=== PATIENT | female | born 1985 | race Caucasian/White ===

== ENCOUNTER 2018-04-08 06:19 | Emergency (ER) | payer SELFPAY ==
[2018-04-08] MEDS: CEPHALEXIN 250 MG CAPSULE. PO (06:42)
[2018-04-08] MEDS: diazePAM 5 MG TABLET PO (06:42)
== END 2018-04-08 09:00 | disposition home or self-care (01) ==
LOC: ER 06:19
DX: I80.02 Phlebitis and thrombophlebitis of superficial vessels of left lower extremity (principal); F19.10 Other psychoactive substance abuse, uncomplicated; F15.10 Other stimulant abuse, uncomplicated; F32.9 Major depressive disorder, single episode, unspecified; Z88.2 Allergy status to sulfonamides; Z88.5 Allergy status to narcotic agent
CPT/HCPCS: 93971; 99284-25

== ENCOUNTER 2019-02-22 15:38 | Emergency (ER) | payer SELFPAY ==
[~2019-02-22] VITALS: Ht 152.4 cm; Wt 52.2 kg
[~2019-02-22 15:38] MED LIST: CEPH-264 PO; NAPR-514 PO
[2019-02-22 16:52] LABS: BILIRUBIN,URINE NEGATIVE (NEG); CLARITY,URINE CLEAR; COLOR,URINE YELLOW; NITRITE,URINE NEGATIVE (NEG); PH,URINE 5.5; PROTEIN,URINE NEGATIVE (NEG-TRACE); UROBILINOGEN,URINE 0.2 mg/dL (0.2 mg/dL)
[2019-02-22 16:58] LABS: SQUAMOUS EPITHELIAL CELL,UR MANY /LPF
[2019-02-22 16:59] LABS: BACTERIA,URINE 0 /HPF (0-FEW)
[2019-02-22] MEDS ORDERED: IV NORMAL SALINE 1000ML BAG 1,000 ML IV ONE (17:15)
[2019-02-22] MEDS ORDERED: ONDANSETRON PF 4 MG/2 ML VIAL. IV ONE (17:15)
[2019-02-22 17:19] LABS: BASO # 0.1 x10^3/uL (0.0-0.2); BASO % 0 % (0-3); EOS # 0.1 x10^3/uL (0.0-0.7); EOS % 1 % (0-3); HEMATOCRIT 45.3 % (36.0-47.0); LYMPH # 0.5 x10^3/uL (1.0-4.8); LYMPH % 3 % (24-48); MEAN CORPUSCULAR HEMOGLOBIN 31 pg (25-35); MEAN CORPUSCULAR HGB CONC 33 g/dL (31-37); MEAN CORPUSCULAR VOLUME 94 fL (79-100); MONO # 0.6 x10^3/uL (0.0-1.1); MONO % 3 % (0-9); NEUT # 16.1 x10^3uL (1.8-7.7); NEUT % 93 % (31-73); PLATELET COUNT 295 x10^3/uL (140-400); RED BLOOD COUNT 4.85 x10^6/uL (3.50-5.40); RED CELL DISTRIBUTION WIDTH 13.3 % (11.5-14.5); WHITE BLOOD COUNT 17.3 x10^3/uL (4.0-11.0)
[2019-02-22 17:27] LABS: BARBITURATES NEG (NEG); BENZODIAZEPINES NEG (NEG); CANNABINOIDS POS (NEG); COCAINE NEG (NEG); METHADONE NEG (NEG); OPIATES NEG (NEG); PHENCYCLIDINE NEG (NEG)
[2019-02-22 17:30] LABS: AMPHETAMINE/METHAMPHETAMINE POS (NEG)
[2019-02-22 17:59] LABS: % BANDS 6 % (0-9); % EOS 2 % (0-5); % LYMPHS 2 % (24-48); % METAS 1 % (0-0); % MONOS 5 % (0-10); % SEGS 84 % (35-66); PLT ESTIMATE ADEQUATE (ADEQUATE)
[2019-02-22 18:00] LABS: TOXIC VACUOLATION SLIGHT
[2019-02-22 18:01] LABS: TOXIC GRANULATION SLIGHT
[2019-02-22] MEDS ORDERED: cefTRIAXone IV Push 1 GM VIAL. IVP ONE (18:30)
[2019-02-22 18:41] LABS: CALCIUM 7.6 mg/dL (8.5-10.1); CREATININE 0.6 mg/dL (0.6-1.0); GFR 115.9; POTASSIUM 3.8 mmol/L (3.5-5.1)
[2019-02-22 18:51] LABS: ALBUMIN/GLOBULIN RATIO 1.1 (1.0-1.7); MAGNESIUM 1.6 mg/dL (1.8-2.4); TOTAL BILIRUBIN 0.2 mg/dL (0.2-1.0); TOTAL PROTEIN 5.8 g/dL (6.4-8.2)
--- NOTE | 2019-02-22 18:55 | RAD ---
Examination: CT of the abdomen pelvis with IV contrast HISTORY: History of elevated WBC, urinary tract infection, history of stones COMPARISON: None TECHNIQUE: Axial CT images of the abdomen pelvis were performed with IV contrast. Coronal and sagittal reformatted performed Exposure: One or more of the following individualized dose reduction techniques were utilized for this examination: 1. Automated exposure control 2. Adjustment of the mA and/or kV according to patient size 3. Use of iterative reconstruction technique FINDINGS: Mild bibasilar atelectasis. No evidence of free air identified in the abdomen. The evaluation of the solid organs is limited due to lack of IV contrast. The evaluation of bowel is limited due to lack of oral contrast. The visualized noncontrasted liver, spleen, adrenals grossly appears unremarkable. Cholecystectomy clips identified. The stomach is mildly distended with fluid. The visualized pancreas grossly appears unremarkable. Mild fluid distended small bowel loops identified throughout the abdomen. The appendix is normal. Feces and gas noted in the colon. The urinary bladder is mildly distended. No evidence of intrarenal collecting system calculi or hydronephrosis. The ureters cannot be followed due to multiple bowel loops about the uterus. The caliber of the aorta grossly appears unremarkable No evidence of lytic bony destructive lesion. IMPRESSION: 1. No evidence of intrarenal collecting system calculi or hydronephrosis. The evaluation of the ureters is limited due to multiple bowel loops in the region. 2. Mild fluid distended small bowel loops identified throughout the abdomen, nonspecific could be mild enteritis. Electronically signed by: Tomas Bravo MD (02/22/2019 6:52 PM) [facility]
[2019-02-22] MEDS ORDERED: CEPH-264 PO (19:05)
--- NOTE | 2019-02-22 19:05 | PHYS DOC ---
Past Medical History Past Medical History: Other Additional Past Medical Histor: OVARIAN CYSTS, GASTRIC ULCERS, Substance Abuse Past Surgical History: Cholecystectomy, Tonsillectomy, Other Additional Past Surgical Histo: MULTIPLE OVARIAN CYSTECTOMY Alcohol Use: None Drug Use: Marijuana, Methamphetamine Adult General Chief Complaint Chief Complaint: ABDOMINAL PAIN HPI HPI 33-year-old female presents to ER via POV with complaints of abdominal pain, nausea and vomiting, and diarrhea. Patient reports symptoms started at 10 AM this morning. Patient states she has had pain which radiates into her left shoulder. Patient states pain has been intermittent. LMP 01/27/19. Patient reports she has smoked marijuana but uncertain if she had smoked today. Patient denies any other illicit drugs. She states she had 2 episodes of vomiting today and one episode of diarrhea. Patient denies chest pain, palpitations, or shortness of air. She reports hx of anxiety- denies SI. Patient is extremely agitated, restless, and anxious during initial exam and patient's significant other who is at bedside reports that is her normal behavior. Review of Systems Review of Systems Constitutional: Denies fever or chills [] Eyes: Denies change in visual acuity, redness, or eye pain [] HENT: Denies nasal congestion or sore throat [] Respiratory: Denies cough or shortness of breath [] Cardiovascular: Denies CP/palpitations GI: Denies bloody stools. Reports diffuse abd pain with N/V/D : Denies dysuria or hematuria. Denies vaginal sxs Musculoskeletal: Denies back/neck pain. Reports pain radiates into lt shoulder Integument: Denies rash or skin lesions [] Neurologic: Denies headache, focal weakness or sensory changes [] All other systems were reviewed and found to be within normal limits, except as documented in this note. Current Medications Current Medications Current Medications Medications (Trade) Dose Ordered Sig/Bhavesh Start Time Stop Time Status Last Admin Dose Admin Ceftriaxone Sodium (Rocephin) 1 gm 1X ONCE 02/22/19 18:30 02/22/19 18:31 DC 02/22/19 18:30 1 GM Lorazepam (Ativan) 1 mg 1X ONCE 02/22/19 17:15 02/22/19 17:16 DC 02/22/19 17:20 1 MG Ondansetron HCl (Zofran) 4 mg 1X ONCE 02/22/19 17:15 02/22/19 17:16 DC 02/22/19 17:21 4 MG Sodium Chloride 1,000 ml @ 1,000 mls/hr 1X ONCE 02/22/19 17:15 02/22/19 18:14 DC 02/22/19 17:21 1,000 MLS/HR Allergies Allergies Allergies Coded Allergies Type Severity Reaction Last Updated Verified Sulfa (Sulfonamide Antibiotics) Allergy Unknown 04/08/18 Yes morphine Adverse Reaction Unknown 04/08/18 Yes Physical Exam Physical Exam Constitutional: Well developed, well nourished, anxious/restless during exam, non-toxic appearance. [] HENT: Normocephalic, atraumatic, mucous membranes pink/dry, nose normal. [] Eyes: Pupils equal, conjunctiva normal, no discharge. [] Neck: Normal range of motion, no tenderness, supple, no stridor. [] Cardiovascular: Tachycardic heart rate regular rhythm, no murmur [] Lungs & Thorax: Bilateral breath sounds clear to auscultation [] Abdomen: Bowel sounds normal, soft- no distention, diffuse tenderness on palp. of all abd, no masses, no pulsatile masses. [] Skin: Warm, dry, no erythema, no rash. [] Back: No tenderness, no CVA tenderness. [] Extremities: No tenderness, no cyanosis, no clubbing, ROM intact, no edema. [] Neurologic: Alert and oriented X 3, normal motor function, normal sensory function, no focal deficits noted. [] Psychologic: Anxious/restless- denies SI. At times during exam had to redirect pt on behavior Current Patient Data Vital Signs Vital Signs Date Time Temp Pulse Resp B/P (MAP) Pulse Ox O2 Delivery O2 Flow Rate FiO2 02/22/19 20:00 98 15 113/68 (83) 100 Room Air 02/22/19 16:08 98.4 98.4 Lab Values Laboratory Tests Test 02/22/19 16:20 02/22/19 16:45 02/22/19 17:09 02/22/19 18:20 Urine Collection Type Unknown Urine Color Yellow Urine Clarity Clear Urine pH 5.5 Urine Specific Lyles 1.025 Urine Protein Negative mg/dL (NEG-TRACE) Urine Glucose (UA) Negative mg/dL (NEG) Urine Ketones (Stick) Negative mg/dL (NEG) Urine Blood Negative (NEG) Urine Nitrite Negative (NEG) Urine Bilirubin Negative (NEG) Urine Urobilinogen Dipstick 0.2 mg/dL (0.2 mg/dL) Urine Leukocyte Esterase Small (NEG) Urine RBC 1-2 /HPF (0-2) Urine WBC 11-20 /HPF (0-4) Urine Squamous Epithelial Cells Many /LPF Urine Bacteria 0 /HPF (0-FEW) Urine Mucus Marked /LPF Urine Opiates Screen Neg (NEG) Urine Methadone Screen Neg (NEG) Urine Barbiturates Neg (NEG) Urine Phencyclidine Screen Neg (NEG) Urine Amphetamine/Methamphetamine Pos (NEG) Urine Benzodiazepines Screen Neg (NEG) Urine Cocaine Screen Neg (NEG) Urine Cannabinoids Screen Pos (NEG) Urine Ethyl Alcohol Neg (NEG) POC Urine HCG, Qualitative Hcg negative (Negative) White Blood Count 17.3 x10^3/uL (4.0-11.0) H Red Blood Count 4.85 x10^6/uL (3.50-5.40) Hemoglobin 15.0 g/dL (12.0-15.5) Hematocrit 45.3 % (36.0-47.0) Mean Corpuscular Volume 94 fL (79-100) Mean Corpuscular Hemoglobin 31 pg (25-35) Mean Corpuscular Hemoglobin Concent 33 g/dL (31-37) Red Cell Distribution Width 13.3 % (11.5-14.5) Platelet Count 295 x10^3/uL (140-400) Neutrophils (%) (Auto) 93 % (31-73) H Lymphocytes (%) (Auto) 3 % (24-48) L Monocytes (%) (Auto) 3 % (0-9) Eosinophils (%) (Auto) 1 % (0-3) Basophils (%) (Auto) 0 % (0-3) Neutrophils # (Auto) 16.1 x10^3uL (1.8-7.7) H Lymphocytes # (Auto) 0.5 x10^3/uL (1.0-4.8) L Monocytes # (Auto) 0.6 x10^3/uL (0.0-1.1) Eosinophils # (Auto) 0.1 x10^3/uL (0.0-0.7) Basophils # (Auto) 0.1 x10^3/uL (0.0-0.2) Segmented Neutrophils % 84 % (35-66) H Band Neutrophils % 6 % (0-9) Lymphocytes % 2 % (24-48) L Monocytes % 5 % (0-10) Eosinophils % 2 % (0-5) Metamyelocytes % 1 % (0-0) H Toxic Granulation Slight Toxic Vacuolation Slight Platelet Estimate Adequate (ADEQUATE) Sodium Level 141 mmol/L (136-145) Potassium Level 3.8 mmol/L (3.5-5.1) Chloride Level 107 mmol/L (98-107) Carbon Dioxide Level 22 mmol/L (21-32) Anion Gap 12 (6-14) Blood Urea Nitrogen 15 mg/dL (7-20) Creatinine 0.6 mg/dL (0.6-1.0) Estimated GFR (Cockcroft-Gault) 115.9 BUN/Creatinine Ratio 25 (6-20) H Glucose Level 83 mg/dL (70-99) Calcium Level 7.6 mg/dL (8.5-10.1) L Magnesium Level 1.6 mg/dL (1.8-2.4) L Total Bilirubin 0.2 mg/dL (0.2-1.0) Aspartate Amino Transferase (AST) 18 U/L (15-37) Alanine Aminotransferase (ALT) 73 U/L (14-59) H Alkaline Phosphatase 95 U/L (46-116) Troponin I Quantitative < 0.017 ng/mL (0.000-0.055) Total Protein 5.8 g/dL (6.4-8.2) L Albumin 3.0 g/dL (3.4-5.0) L Albumin/Globulin Ratio 1.1 (1.0-1.7) Lipase 56 U/L (73-393) L Ethyl Alcohol Level < 10 mg/dL (0-10) Laboratory Tests 02/22/19 17:09 Laboratory Tests 02/22/19 18:20 Microbiology 02/22/19 Urine Culture - Final, Complete 02/22/19 Urine Culture Result 1 (DIVINE) - Final, Complete EKG EKG EKG obtained 02/22/19 at 1749 Interpreted by ER physician Sinus rhythm Nonspec. ST/T wave changes Rate 97 No STEMI Radiology/Procedures Radiology/Procedures PROCEDURE: CT ABDOMEN PELVIS WO CONTRAST Examination: CT of the abdomen pelvis with IV contrast HISTORY: History of elevated WBC, urinary tract infection, history of stones COMPARISON: None TECHNIQUE: Axial CT images of the abdomen pelvis were performed with IV contrast. Coronal and sagittal reformatted performed Exposure: One or more of the following individualized dose reduction techniques were utilized for this examination: 1. Automated exposure control 2. Adjustment of the mA and/or kV according to patient size 3. Use of iterative reconstruction technique FINDINGS: Mild bibasilar atelectasis. No evidence of free air identified in the abdomen. The evaluation of the solid organs is limited due to lack of IV contrast. The evaluation of bowel is limited due to lack of oral contrast. The visualized noncontrasted liver, spleen, adrenals grossly appears unremarkable. Cholecystectomy clips identified. The stomach is mildly distended with fluid. The visualized pancreas grossly appears unremarkable. Mild fluid distended small bowel loops identified throughout the abdomen. The appendix is normal. Feces and gas noted in the colon. The urinary bladder is mildly distended. No evidence of intrarenal collecting system calculi or hydronephrosis. The ureters cannot be followed due to multiple bowel loops about the uterus. The caliber of the aorta grossly appears unremarkable No evidence of lytic bony destructive lesion. IMPRESSION: 1. No evidence of intrarenal collecting system calculi or hydronephrosis. The evaluation of the ureters is limited due to multiple bowel loops in the region. 2. Mild fluid distended small bowel loops identified throughout the abdomen, nonspecific could be mild enteritis. Electronically signed by: Tomas Bravo MD (02/22/2019 6:52 PM) [facility] DICTATED and SIGNED BY: TOMAS BRAVO MD DATE: 02/22/191851 Course & Med Decision Making Course & Med Decision Making Pertinent Labs and Imaging studies reviewed. (See chart for details) 1904: Pt was evaluated in the ER for c/o abd pain and was anxious/restless at time of arrival/initial exam. She had denied drug use other than marijuana- past records reported drug abuse hx so UDS was obtained. Pt was + for amphetamine- this was discussed with pt and she would not admit/deny use at time of discussion. She closed her eyes and had no interest in conversation. Rest of test results were discussed with patient having calcium of 7.6 and Mg 1.6 on her labs so discussed calcium supplement being provided while in the ER and patient was advised on need for calcium/Mg supplement and recheck with her primary care physician to have her calcium level redrawn. Pt opened her eyes and stated she has had low calcium/Mg levels for quite some time and it is on supplements but is not taking them as she should've the past few days. She reports she will take at home versus having supplements in the ER. Discussed test results and plans for home discharge. Patient has had less anxiety following dose of IV Ativan with improved HR in 90s at time of this discussion and she was also given 1L NS fld bolus. Patient had UTI on UA which was treated with IV Rocephin while in the ER and she will be sent home with prescription for Keflex. Advised patient on avoiding drug use. Patient encouraged to increase fluids and eat well-balanced meals. Education provided on signs and symptoms to return to ER. Discharge instructions were discussed. Patient to follow-up with primary care physician if symptoms persist or with any concerns. Pt's significant other remained at bedside during discussion- she was asked prior to test results being discussed if ok for him to hear results- she gave verbal permission for him to remain at bedside. Dragon Disclaimer Dragon Disclaimer This electronic medical record was generated, in whole or in part, using a voice recognition dictation system. Departure Departure Impression: Primary Impression: Urinary tract infection Additional Impressions: Drug use Anxiety Hypocalcemia Disposition: 01 HOME, SELF-CARE Condition: STABLE Referrals: NO PCP (PCP) Patient Instructions: Anxiety and Panic Attacks, Drug Abuse and Addiction- SportsMed, Hypocalcemia, Adult, Urinary Tract Infection Additional Instructions: Stop using drugs. Drink plenty of fluids and eat well balanced meals. Take your prescriptions as prescribed. Follow-up with your primary doctor for re-evaluation and further care. Your calcium was 7.6 which is low and you need daily calcium supplement and then have your levels rechecked by your primary doctor. Scripts Cephalexin (KEFLEX) 500 Mg Capsule 1 CAP PO BID, #14 CAP 0 Refills Prov: DONNA CARROLL APRN 02/22/19 Problem Qualifiers DONNA CARROLL APRN Feb 22, 2019 19:05
[2019-02-22 20:00] VITALS: BP 113/68
--- NOTE | 2019-02-23 08:43 | EKG ---
[facility] [address] [place] [address] Test Date: 2019-02-22 Test Time: 17:49:36 Pat Name: JAVIER TREVINO Department: Room: Gender: F Patient Portal Representative: JOSHUA : 1985 Requested By: DONNA CARROLL Order Number: [id number] Reading MD: Karthik Leonard MD Measurements Intervals [place] Rate: 97 P: 61 CT: 96 QRS: -115 QRSD: 116 T: 28 QT: 366 QTc: 469 Interpretive Statements SINUS RHYTHM NON-SPECIFIC ST/T CHANGES Electronically Signed On 02-26-2019 15:12:06 CDT by Karthik Leonard MD
== END 2019-02-22 20:00 | disposition home or self-care (01) ==
LOC: ER 15:38
DX: F12.20 Cannabis dependence, uncomplicated (principal); F15.20 Other stimulant dependence, uncomplicated; N39.0 Urinary tract infection, site not specified; F41.9 Anxiety disorder, unspecified; E83.51 Hypocalcemia; R11.2 Nausea with vomiting, unspecified; R19.7 Diarrhea, unspecified; R45.1 Restlessness and agitation; M25.512 Pain in left shoulder; R00.0 Tachycardia, unspecified; Z90.49 Acquired absence of other specified parts of digestive tract; Z90.89 Acquired absence of other organs; Z88.2 Allergy status to sulfonamides; Z88.5 Allergy status to narcotic agent
CPT/HCPCS: 36415; 74176; 80053; 80307; 81001; 81025; 83690; 83735; 84484; 85007; 85025; 87086; 93005; 96361; 96374; 96375; 99284; G0480; J0696; J2060; J2405; J7030

== ENCOUNTER 2019-08-15 09:51 | Observation (INO) | payer MEDICAID ==
[~2019-08-15] VITALS: Ht 152.4 cm; Wt 57.6 kg
[2019-08-15] MEDS ORDERED: IV RINGERS,LACTATED 1000ML 1,000 ML IV SCH (10:06)
[2019-08-15 10:25] LABS: BILIRUBIN,URINE NEGATIVE (NEG); CLARITY,URINE CLEAR; COLOR,URINE YELLOW; NITRITE,URINE NEGATIVE (NEG); PH,URINE 7.5; PROTEIN,URINE NEGATIVE (NEG-TRACE); UROBILINOGEN,URINE 0.2 mg/dL (0.2 mg/dL)
[2019-08-15 10:32] LABS: BARBITURATES NEG (NEG); BENZODIAZEPINES NEG (NEG); CANNABINOIDS NEG (NEG); COCAINE NEG (NEG); METHADONE NEG (NEG); OPIATES NEG (NEG); PHENCYCLIDINE NEG (NEG)
[2019-08-15 10:33] LABS: AMPHETAMINE/METHAMPHETAMINE NEG (NEG)
[2019-08-15 10:36] LABS: AMORPHOUS SEDIMENT,UR PRESENT /HPF; BACTERIA,URINE MODERATE /HPF (0-FEW); RBC,URINE RARE /HPF (0-2); SQUAMOUS EPITHELIAL CELL,UR FEW /LPF; WBC,URINE OCC /HPF (0-4)
== END 2019-08-15 11:45 | disposition home or self-care (01) ==
LOC: 3 SO LND 09:51
PROVIDERS: ADMIT Obstetrics & Gynecology; ATTEND Obstetrics & Gynecology
DX: O36.8120 Decreased fetal movements, second trimester, not applicable or unspecified (principal); Z3A.24 24 weeks gestation of pregnancy
CPT/HCPCS: 80307; 81001; 87086; G0378; G0379

== ENCOUNTER 2019-08-19 09:09 | Observation (INO) | payer SELFPAY ==
[2019-08-19 10:02] LABS: BARBITURATES NEG (NEG); BENZODIAZEPINES NEG (NEG); CANNABINOIDS NEG (NEG); COCAINE NEG (NEG); METHADONE NEG (NEG); OPIATES NEG (NEG); PHENCYCLIDINE NEG (NEG)
[2019-08-19 10:15] LABS: AMPHETAMINE/METHAMPHETAMINE POS (NEG)
[2019-08-19 13:10] LABS: BASO % 0 % (0-3); EOS # 0.1 x10^3/uL (0.0-0.7); EOS % 1 % (0-3); HEMATOCRIT 33.2 % (36.0-47.0); HEMOGLOBIN 11.4 g/dL (12.0-15.5); LYMPH # 2.3 x10^3/uL (1.0-4.8); LYMPH % 16 % (24-48); MEAN CORPUSCULAR HEMOGLOBIN 33 pg (25-35); MEAN CORPUSCULAR HGB CONC 34 g/dL (31-37); MEAN CORPUSCULAR VOLUME 96 fL (79-100); MONO # 0.9 x10^3/uL (0.0-1.1); MONO % 6 % (0-9); NEUT # 11.5 x10^3/uL (1.8-7.7); NEUT % 77 % (31-73); PLATELET COUNT 244 x10^3/uL (140-400); RED BLOOD COUNT 3.48 x10^6/uL (3.50-5.40); RED CELL DISTRIBUTION WIDTH 13.2 % (11.5-14.5); WHITE BLOOD COUNT 14.9 x10^3/uL (4.0-11.0)
[2019-08-19 13:20] LABS: BILIRUBIN,URINE NEGATIVE (NEG); CLARITY,URINE CLEAR; COLOR,URINE YELLOW; NITRITE,URINE NEGATIVE (NEG); PROTEIN,URINE NEGATIVE (NEG-TRACE); UROBILINOGEN,URINE 0.2 mg/dL (0.2 mg/dL)
[2019-08-19 13:36] LABS: AMORPHOUS SEDIMENT,UR PRESENT /HPF; BACTERIA,URINE FEW /HPF (0-FEW); RBC,URINE 0 /HPF (0-2); SQUAMOUS EPITHELIAL CELL,UR MOD /LPF
--- NOTE | 2019-08-19 15:44 | RAD ---
Examination: OB > 14 WKS W/TV History: No care. Maternal drug use is reported. Comparison/Correlation: None FINDINGS: Single living intrauterine gestation with cephalic lie is present. Heart rate was 75 bpm. breathing is not identified. motion seen. Placenta is unremarkable. anatomy identified includes: Bladder, spine, bilateral lateral ventricles, stomach, heart, aorta, three-vessel cord insertion, bilateral kidneys, diaphragm, cerebellum, cisterna magna, bilateral upper extremities, and bilateral lower extremities. The right and left ventricular outflow tracts are not well visualized due to positioning of the fetus. measurements include: Biparietal diameter: 6.33 cm corresponding to 25 weeks 4 days. Femur length of 4.45 cm corresponding to 24 weeks 5 days. Head circumference of 23.19 cm corresponding to 25 weeks 2 days. Abdominal circumference of 19.62 cm corresponding to 24 weeks 2 days. Age by 4 parameters corresponds to 25 weeks 0 days. EDC by average age is 12/02/2019. Gestational age by last menstrual period is 25 weeks 2 days with EDC of 11/30/2019. Cephalic index of 84.7. H/A ratio is 1.18. FL/BPD is 70.3. FL/ AC is 22.7. Estimated weight is 713 g +/- 1 106 g. Is at the 36th percentile. Maternal cervical length is 3.81 cm. Adnexal regions are unremarkable. IMPRESSION: Single living intrauterine gestation with average ultrasound age corresponding to 25 weeks 0 days. This is 2 days less than age by last menstrual period. Electronically signed by: Figueroa Jolley MD (08/19/2019 3:41 PM) [facility]
[2019-08-20 18:09] LABS: RUBELLA IGG ANTIBODY 9.36 index (Immune >0.99)
== END 2019-08-19 16:47 | disposition home or self-care (01) ==
LOC: 3 SO LND 09:09
PROVIDERS: ADMIT Obstetrics & Gynecology; ATTEND Obstetrics & Gynecology
DX: O26.892 Other specified pregnancy related conditions, second trimester (principal); R10.9 Unspecified abdominal pain; Z3A.25 25 weeks gestation of pregnancy
CPT/HCPCS: 36415; 76805; 76817; 80307; 81001; 85025; 86592; 86703; 86762; 86850; 86900; 86901; 87086; G0378; G0379